=== PATIENT | male | born 2000 | race African-American/Black ===

== ENCOUNTER 2020-06-25 18:09 | Emergency (ER) | payer BC, MEDICAID ==
[~2020-06-25] VITALS: Ht 180.3 cm; Wt 79.0 kg
[2020-06-25 18:15] VITALS: BP 146/88
== END 2020-06-25 19:47 | disposition left against medical advice (07) ==
LOC: ER 18:09
DX: F12.10 Cannabis abuse, uncomplicated (principal); R00.2 Palpitations
CPT/HCPCS: 93005; 99283